=== PATIENT | female | born 1955 | race Caucasian/White ===

== ENCOUNTER 2022-03-05 13:09 | Emergency (ER) | payer MEDICARE, MEDICAID ==
[~2022-03-05] VITALS: Ht 157.5 cm; Wt 59.8 kg
[2022-03-05 13:51] LABS: BASOPHILS # (AUTO) 0.1 X10'3 (0-0.2); BASOPHILS % (AUTO) 0.7 % (0-1); EOSINOPHILS # (AUTO) 0.1 X10'3 (0-0.9); EOSINOPHILS % (AUTO) 1.2 % (0-6); HEMATOCRIT 38.4 % (35.0-45.0); HEMOGLOBIN 12.9 g/dl (12.0-16.0); LYMPHOCYTES # (AUTO) 1.7 X10'3 (1.1-4.8); LYMPHOCYTES % (AUTO) 17.7 % (21-51); MEAN CORPUSCULAR HEMOGLOBIN 27.2 PG (27.0-31.0); MEAN CORPUSCULAR HGB CONC 33.5 g/dL (33.0-36.5); MEAN CORPUSCULAR VOLUME 81.3 FL (78-98); MEAN PLATELET VOLUME 7.4 FL (7.4-10.4); MONOCYTES # (AUTO) 0.8 X10'3 (0-0.9); MONOCYTES % (AUTO) 7.8 % (2-12); NEUTROPHILS % (AUTO) 72.6 % (42-75); PLATELET COUNT 542 X10'3 (140-440); RED BLOOD COUNT 4.72 X10'6 (4.20-5.60); RED CELL DISTRIBUTION WIDTH 12.7 % (11.5-14.5); WHITE BLOOD COUNT 9.7 X10'3 (4.5-11.0)
[2022-03-05 13:59] LABS: ALANINE AMINOTRANSFERASE 34 U/L (12-78); ALBUMIN 3.4 G/DL (3.4-5.0); ALBUMIN/GLOBULIN RATIO 0.8 (1.1-1.5); ALKALINE PHOSPHATASE 82 IU/L (46-116); ANION GAP 11 (8-16); ASPARTATE AMINO TRANSFERASE 30 U/L (10-37); BILIRUBIN,TOTAL 0.3 MG/DL (0.1-1.0); BLOOD UREA NITROGEN 15 MG/DL (7-18); BUN/CREATININE RATIO 18.3 (6.6-38.0); CALCIUM 9.5 MG/DL (8.5-10.1); CHLORIDE 103 MMOL/L (99-107); CREATININE 0.82 MG/DL (0.40-0.90); GLUCOSE 100 MG/DL (70-104); LIPASE 159 U/L (73-393); SODIUM 142 MMOL/L (135-145); TOTAL CARBON DIOXIDE 28.2 MMOL/L (24-32); TOTAL PROTEIN 7.8 G/DL (6.4-8.2); eGFR 69 ML/MIN
[2022-03-05 14:16] LABS: CLARITY,URINE CLOUDY (Clear); COLOR,URINE YELLOW (Yellow); GLUCOSE, URINE NEGATIVE (Neg); KETONES,URINE TRACE mg/dl (Neg); LEUKOCYTE ESTERASE ,URINE MODERATE (Neg); NITRITES, URINE NEGATIVE (Neg); OCCULT BLOOD,URINE NEGATIVE (Neg); PROTEIN,URINE NEGATIVE (Neg); URINE HCG NEGATIVE (NEG); UROBILINOGEN,URINE 0.2 E.U/dL (0.2-1.0)
[2022-03-05 14:18] LABS: UA COLLECTION TYPE CLN CATCH MIDSTREAM
[2022-03-05 14:24] LABS: MUCUS STRANDS MANY /LPF (Neg); SQUAMOUS EPITHELIAL CELL,UR MANY /LPF (FEW); WBC,URINE 50-100 /HPF (0-4)
[2022-03-05 14:25] LABS: BACTERIA,URINE 2+ /HPF (Neg); RBC,URINE 0-2 /HPF (0-2)
[2022-03-05 16:17] VITALS: BP 159/76
== END 2022-03-05 18:32 | disposition home or self-care (01) ==
LOC: ER 13:14
DX: N82.3 Fistula of vagina to large intestine (principal); R10.30 Lower abdominal pain, unspecified; N93.8 Other specified abnormal uterine and vaginal bleeding; J44.9 Chronic obstructive pulmonary disease, unspecified; F17.200 Nicotine dependence, unspecified, uncomplicated; F12.90 Cannabis use, unspecified, uncomplicated; Z87.01 Personal history of pneumonia (recurrent); Z90.710 Acquired absence of both cervix and uterus; Z98.890 Other specified postprocedural states; Z88.2 Allergy status to sulfonamides; Z88.5 Allergy status to narcotic agent
CPT/HCPCS: 36415; 74176; 80053; 81001; 81025; 83690; 85025; 99284

== ENCOUNTER 2022-09-22 08:32 | Day surgery (SDC) | payer MEDICARE, MEDICAID ==
[2022-09-22] VITALS (20 sets, daily range): BP systolic 90–143; BP diastolic 45–76
[~2022-09-22] VITALS: Ht 157.5 cm; Wt 57.5 kg
[2022-09-22] MEDS ORDERED: BIOT1CAP3 PO (09:09)
[2022-09-22] MEDS ORDERED: MULT-1074 PO (09:09)
[2022-09-22] MEDS ORDERED: LOSA50TA64 PO (09:09)
[2022-09-22] MEDS ORDERED: ROSU10TA28 PO (09:09)
[2022-09-22] MEDS ORDERED: TIOT18CA3 INH (09:09)
[2022-09-22] MEDS ORDERED: ASCO100T12 PO (09:09)
[2022-09-22] MEDS ORDERED: OMEG-166 PO (09:09)
[2022-09-22] MEDS ORDERED: ESCI20TA39 PO (09:09)
[2022-09-22] MEDS ORDERED: BUPR-317 PO (09:09)
[2022-09-22] MEDS ORDERED: BUDE10.2 INH (09:09)
[2022-09-22] MEDS ORDERED: TRAZ-251 PO (09:09)
[2022-09-22 09:46] LABS: BASOPHILS # (AUTO) 0.1 X10'3 (0-0.2); BASOPHILS % (AUTO) 1.1 % (0-1); EOSINOPHILS # (AUTO) 0.2 X10'3 (0-0.9); EOSINOPHILS % (AUTO) 1.9 % (0-6); HEMATOCRIT 36.8 % (35.0-45.0); HEMOGLOBIN 12.6 g/dl (12.0-16.0); LYMPHOCYTES # (AUTO) 1.9 X10'3 (1.1-4.8); LYMPHOCYTES % (AUTO) 21.4 % (21-51); MEAN CORPUSCULAR HEMOGLOBIN 29.1 PG (27.0-31.0); MEAN CORPUSCULAR HGB CONC 34.2 g/dL (33.0-36.5); MEAN CORPUSCULAR VOLUME 84.9 FL (78-98); MEAN PLATELET VOLUME 8.3 FL (7.4-10.4); MONOCYTES # (AUTO) 0.6 X10'3 (0-0.9); MONOCYTES % (AUTO) 6.4 % (2-12); NEUTROPHILS # (AUTO) 6.1 X10'3 (1.8-7.7); NEUTROPHILS % (AUTO) 69.2 % (42-75); PLATELET COUNT 367 X10'3 (140-440); RED BLOOD COUNT 4.33 X10'6 (4.20-5.60); RED CELL DISTRIBUTION WIDTH 14.8 % (11.5-14.5); WHITE BLOOD COUNT 8.9 X10'3 (4.5-11.0)
[2022-09-22] MEDS ORDERED: fentaNYL/PF 50MCG/1 ML 2ML syringe ONE (09:56)
[2022-09-22] MEDS ORDERED: midazolam 1 mg/ML 2ml injection ONE (09:56)
[2022-09-22] MEDS ORDERED: LIDOcaine 1% (10mg/ml) 2ml vial ONE ×2 (09:56→10:34)
[2022-09-22] MEDS ORDERED: gelatin sponge, absorbable (Gelfoam 12-7MM) sponge TP ONE (09:57)
[2022-09-22] MEDS ORDERED: normal saline 1000ml 1,000 ML IV PRN (10:00)
== END 2022-09-22 17:15 | disposition home or self-care (01) ==
LOC: SSTAY O 08:32
PROVIDERS: ATTEND Radiology Vascular & Interventional Radiology
DX: R91.1 Solitary pulmonary nodule (principal); C34.91 Malignant neoplasm of unspecified part of right bronchus or lung; J43.9 Emphysema, unspecified; Z90.710 Acquired absence of both cervix and uterus; Z98.890 Other specified postprocedural states; Z79.899 Other long term (current) drug therapy; F12.90 Cannabis use, unspecified, uncomplicated; Z88.2 Allergy status to sulfonamides; Z88.6 Allergy status to analgesic agent
CPT/HCPCS: 32408; 36415; 71045; 85025; 99152; 99153; C1729; C1769; J2250; J3010; J3490; J7030; 77012; 88305; 88341; 88342; A4421; A4615; A6258

== ENCOUNTER 2024-11-15 14:23 | Inpatient (IN) | payer MEDICARE, MEDICAID ==
[~2024-11-15] VITALS: Ht 154.9 cm; Wt 49.0 kg
[~2024-11-15 14:23] MED LIST: ALBU18HF2 PO; ASCO500T28 PO; BIOT1CAP3 PO; BUDE10.2 INH; BUPR-561 PO; CBD; ESCI20TA39 PO; IBUP-2697 PO; LOSA50TA64 PO; MULT-1074 PO; OMEG-166 PO; OREGANO OIL; QUER500C PO; ROSU10TA72 PO; THC; TIOT18CA3 INH; TRAZ-251 PO; ZINC30CA PO; [UNRECOGNIZED DRUG - OTHER]
[2024-11-15 15:48] LABS: BASOPHILS % (AUTO) 0.3 % (0-1); EOSINOPHILS # (AUTO) 0.1 X10'3 (0-0.9); EOSINOPHILS % (AUTO) 0.8 % (0-6); HEMATOCRIT 38.5 % (35.0-45.0); HEMOGLOBIN 12.7 g/dl (12.0-16.0); LYMPHOCYTES # (AUTO) 1.4 X10'3 (1.1-4.8); LYMPHOCYTES % (AUTO) 9.3 % (21-51); MEAN CORPUSCULAR HEMOGLOBIN 26.1 PG (27.0-31.0); MEAN CORPUSCULAR HGB CONC 32.9 g/dL (33.0-36.5); MEAN CORPUSCULAR VOLUME 79.1 FL (78-98); MEAN PLATELET VOLUME 8.3 FL (7.4-10.4); MONOCYTES # (AUTO) 1.2 X10'3 (0-0.9); MONOCYTES % (AUTO) 8.2 % (2-12); NEUTROPHILS # (AUTO) 12.3 X10'3 (1.8-7.7); NEUTROPHILS % (AUTO) 81.4 % (42-75); PLATELET COUNT 459 X10'3 (140-440); RED BLOOD COUNT 4.86 X10'6 (4.20-5.60); RED CELL DISTRIBUTION WIDTH 15.6 % (11.5-14.5); WHITE BLOOD COUNT 15.1 X10'3 (4.5-11.0)
[2024-11-15 15:53] LABS: BILIRUBIN,URINE SMALL (Neg); CLARITY,URINE SLIGHTLY CLOUDY (Clear); COLOR,URINE YELLOW (Yellow); GLUCOSE, URINE NEGATIVE (Neg); KETONES,URINE 15 mg/dl (Neg); LEUKOCYTE ESTERASE ,URINE SMALL (Neg); NITRITES, URINE NEGATIVE (Neg); OCCULT BLOOD,URINE NEGATIVE (Neg); PROTEIN,URINE NEGATIVE (Neg)
[2024-11-15 16:01] LABS: ALANINE AMINOTRANSFERASE 21 U/L (12-78); ALBUMIN 3.4 G/DL (3.4-5.0); ALBUMIN/GLOBULIN RATIO 0.9 (1.1-1.5); ANION GAP 9 (8-16); ASPARTATE AMINO TRANSFERASE 16 U/L (10-37); BILIRUBIN,TOTAL 0.8 MG/DL (0.1-1.0); BLOOD UREA NITROGEN 15 MG/DL (7-18); BUN/CREATININE RATIO 22.7 (10.0-20.0); CALCIUM 9.2 MG/DL (8.5-10.1); CHLORIDE 99 MMOL/L (99-107); CREATININE 0.66 MG/DL (0.40-0.90); GLUCOSE 109 MG/DL (70-104); LIPASE 27 U/L (16-77); POTASSIUM 4.2 MMOL/L (3.5-5.1); SODIUM 136 MMOL/L (135-145); TOTAL CARBON DIOXIDE 27.7 MMOL/L (24-32); TOTAL PROTEIN 7.4 G/DL (6.4-8.2); eCRCL 54 ML/MIN; eGFR 88 ML/MIN
[2024-11-15 16:03] LABS: UA COLLECTION TYPE CLN CATCH MIDSTREAM
[2024-11-15 16:04] LABS: BACTERIA,URINE 1+ /HPF (Neg); CAL OXALATE CRYSTALS 4+ /HPF (NEGATIVE); MUCUS STRANDS FEW /LPF (Neg); SQUAMOUS EPITHELIAL CELL,UR FEW /LPF (FEW); TRANSITIONAL EPI CELLS,URINE FEW /HPF; WBC,URINE 20-30 /HPF (0-4)
[2024-11-15 16:05] LABS: ALKALINE PHOSPHATASE 94 IU/L (46-116)
[2024-11-15] MEDS ORDERED: iohexol 300mg/ml 100ml inj. ONE (17:00)
[2024-11-15] MEDS: ondansetron/PF 4mg/2ml inj IV ONE ×2 (19:06→22:48)
[2024-11-15] MEDS: fentaNYL/PF 50MCG/1 ML 2ML syringe IV ONE (22:45)
[2024-11-15] MEDS: normal saline 1000ML IV soln IVB ONE (22:46)
[2024-11-15] MEDS: CefTRIAXone/D5W-Rocephin 1gm 50 ML IV ONE (22:46)
[2024-11-15] MEDS: LIDOcaine 2% Viscous 15ml cup MM ONE (22:48)
[2024-11-15] MEDS ORDERED: acetaminophen 325mg tablet PO PRN (23:50)
[2024-11-15] MEDS ORDERED: potassium Cl 20 mEq SR tablet PO PRN ×2 (23:50)
[2024-11-15] MEDS ORDERED: magnesium sulf-water 2g/50mL 50 ML IV PRN (23:50)
[2024-11-15] MEDS ORDERED: magnesium hydroxide 30ml (MOM) UD suspension PO PRN (23:50)
[2024-11-15] MEDS ORDERED: magnesium Cl slow-release 64mg tablet PO PRN (23:50)
[2024-11-15] MEDS ORDERED: metoclopramide 5 mg/ml inj IV PRN (23:50)
[2024-11-15] MEDS ORDERED: potassium Cl 40MEQ/1/2NS 520ml 520 ML IV PRN (23:50)
[2024-11-15] MEDS: normal saline 1000ml 1,000 ML IV SCH (23:50)
[2024-11-15] MEDS ORDERED: magnesium sulf-water 4G/100mL 100 ML IV PRN (23:50)
[2024-11-16] VITALS (8 sets, daily range): BP systolic 109–167; BP diastolic 57–99; PULSE 83–96; RESP 15–20; TEMP 97.4–98.3; O2SAT 93–99
[2024-11-16] MEDS: HYDROmorphone inj. 0.5 MG/0.5 ML DISP.SYRIN IV PRN (01:32)
[2024-11-16] MEDS: pantoprazole 40 MG vial IV SCH (01:33)
[2024-11-16 03:30] LABS: BASOPHILS % (AUTO) 0.1 % (0-1); EOSINOPHILS % (AUTO) 0.1 % (0-6); HEMATOCRIT 36.9 % (35.0-45.0); HEMOGLOBIN 12.2 g/dl (12.0-16.0); LYMPHOCYTES # (AUTO) 0.4 X10'3 (1.1-4.8); MEAN CORPUSCULAR HEMOGLOBIN 26.2 PG (27.0-31.0); MEAN CORPUSCULAR HGB CONC 33.1 g/dL (33.0-36.5); MEAN CORPUSCULAR VOLUME 79.2 FL (78-98); MEAN PLATELET VOLUME 8.7 FL (7.4-10.4); MONOCYTES # (AUTO) 0.6 X10'3 (0-0.9); MONOCYTES % (AUTO) 4.2 % (2-12); NEUTROPHILS # (AUTO) 13.3 X10'3 (1.8-7.7); NEUTROPHILS % (AUTO) 92.6 % (42-75); PLATELET COUNT 406 X10'3 (140-440); RED BLOOD COUNT 4.66 X10'6 (4.20-5.60); RED CELL DISTRIBUTION WIDTH 16.2 % (11.5-14.5); WHITE BLOOD COUNT 14.4 X10'3 (4.5-11.0)
[2024-11-16 03:46] LABS: ALANINE AMINOTRANSFERASE 20 U/L (12-78); ALBUMIN/GLOBULIN RATIO 0.8 (1.1-1.5); ANION GAP 9 (8-16); ASPARTATE AMINO TRANSFERASE 18 U/L (10-37); BILIRUBIN,TOTAL 1.7 MG/DL (0.1-1.0); BLOOD UREA NITROGEN 21 MG/DL (7-18); BUN/CREATININE RATIO 31.8 (10.0-20.0); CALCIUM 8.4 MG/DL (8.5-10.1); CHLORIDE 104 MMOL/L (99-107); CREATININE 0.66 MG/DL (0.40-0.90); GLUCOSE 122 MG/DL (70-104); MAGNESIUM 1.9 MG/DL (1.5-2.4); SODIUM 139 MMOL/L (135-145); TOTAL CARBON DIOXIDE 26.4 MMOL/L (24-32); TOTAL PROTEIN 6.7 G/DL (6.4-8.2); eCRCL 54 ML/MIN; eGFR 88 ML/MIN
[2024-11-16] MEDS ORDERED: FLUT1BLS7 INH (03:53)
[2024-11-16] MEDS ORDERED: VIT1CAPS4 PO (03:55)
[2024-11-16] MEDS ORDERED: LOSA25TA41 PO (03:58)
[2024-11-16 04:00] LABS: ALKALINE PHOSPHATASE 83 IU/L (46-116)
[2024-11-16] MEDS ORDERED: TIOT4MIS2 INH (04:02)
[2024-11-16] MEDS ORDERED: LACT1CAP65 PO (04:04)
[2024-11-16] MEDS ORDERED: albuterol 2.5 MG/3 ML nebule NEB PRN (04:30)
[2024-11-16] MEDS: methylPREDNISolone sod succ/PF 40mg inj. IV SCH (05:25)
[2024-11-16] MEDS: docusate sod 100mg capsule PO SCH (08:00)
[2024-11-16] MEDS: K and/or MAG REPLACEMENT MC SCH (08:00)
[2024-11-16] MEDS: metroNIDAZOLE-Flagyl 500mg/NS 100 ML IV SCH (08:15)
[2024-11-16] MEDS: hydrALAZINE 20mg/ml inj. IV PRN (20:32)
[2024-11-16] MEDS: CefTRIAXone/D5W-Rocephin 1gm 50 ML IV SCH (22:05)
[2024-11-17] MEDS: diatr meglu/diatrizoate 30ml oral sol.-(3 dose) bottle PO SCH (01:04)
[2024-11-17 06:00] VITALS: BP 133/74; PULSE 95; RESP 17; TEMP 98.5; O2SAT 96
[2024-11-17 06:31] LABS: BASOPHILS % (AUTO) 0.1 % (0-1); EOSINOPHILS % (AUTO) 0 % (0-6); HEMATOCRIT 33.5 % (35.0-45.0); HEMOGLOBIN 11.2 g/dl (12.0-16.0); LYMPHOCYTES # (AUTO) 0.5 X10'3 (1.1-4.8); LYMPHOCYTES % (AUTO) 10.5 % (21-51); MEAN CORPUSCULAR HEMOGLOBIN 26.5 PG (27.0-31.0); MEAN CORPUSCULAR HGB CONC 33.6 g/dL (33.0-36.5); MEAN PLATELET VOLUME 8.6 FL (7.4-10.4); MONOCYTES # (AUTO) 0.3 X10'3 (0-0.9); MONOCYTES % (AUTO) 4.9 % (2-12); NEUTROPHILS # (AUTO) 4.4 X10'3 (1.8-7.7); NEUTROPHILS % (AUTO) 84.5 % (42-75); PLATELET COUNT 381 X10'3 (140-440); RED BLOOD COUNT 4.24 X10'6 (4.20-5.60); RED CELL DISTRIBUTION WIDTH 15.6 % (11.5-14.5); WHITE BLOOD COUNT 5.2 X10'3 (4.5-11.0)
[2024-11-17 06:53] LABS: ALANINE AMINOTRANSFERASE 19 U/L (12-78); ALBUMIN 2.8 G/DL (3.4-5.0); ALBUMIN/GLOBULIN RATIO 0.8 (1.1-1.5); ALKALINE PHOSPHATASE 67 IU/L (46-116); ANION GAP 8 (8-16); ASPARTATE AMINO TRANSFERASE 21 U/L (10-37); BILIRUBIN,TOTAL 0.4 MG/DL (0.1-1.0); BLOOD UREA NITROGEN 23 MG/DL (7-18); BUN/CREATININE RATIO 41.8 (10.0-20.0); CALCIUM 8.2 MG/DL (8.5-10.1); CHLORIDE 107 MMOL/L (99-107); CREATININE 0.55 MG/DL (0.40-0.90); GLUCOSE 121 MG/DL (70-104); MAGNESIUM 1.9 MG/DL (1.5-2.4); SODIUM 141 MMOL/L (135-145); TOTAL CARBON DIOXIDE 25.7 MMOL/L (24-32); TOTAL PROTEIN 6.4 G/DL (6.4-8.2); eCRCL 68 ML/MIN; eGFR > 90 ML/MIN
[2024-11-17 08:37] VITALS: PULSE 87; RESP 18; O2SAT 98
[2024-11-17 10:00] VITALS: BP 143/76; PULSE 103; RESP 18; TEMP 98.8; O2SAT 94
[2024-11-17] MEDS ORDERED: diatr meglu/diatrizoate 30ml oral sol.-(3 dose) bottle ONE (14:22)
[2024-11-17 18:30] VITALS: BP 164/84; PULSE 91; RESP 18; TEMP 97.6; O2SAT 95
[2024-11-17] MEDS ORDERED: non-formulary drug (Albuterol Sulfate (Ventolin Hfa) 2 PUFFS) PO PRN (18:50)
[2024-11-17] MEDS: SALMETEROL IH SCH (20:00)
[2024-11-17] MEDS: FLUTICASONE IH SCH (20:00)
[2024-11-17] MEDS: traZODone 50mg tablet PO SCH (21:30)
[2024-11-17] MEDS: losartan 25mg tablet PO SCH (21:31)
[2024-11-17] MEDS: atorvastatin 20mg tablet PO SCH (21:31)
[2024-11-17 22:00] VITALS: BP 140/77; PULSE 87; RESP 18; TEMP 98.2; O2SAT 95
[2024-11-17 23:39] VITALS: BP 142/83; PULSE 87; RESP 24; TEMP 98.3; O2SAT 94
[2024-11-18] VITALS (11 sets, daily range): BP systolic 129–168; BP diastolic 65–93; PULSE 86–98; RESP 14–24; TEMP 97.6–99; O2SAT 94–99
[2024-11-18] MEDS ORDERED: non-formulary drug (Lactobacillus Acidophilus (Probiotic) 1 CAP) PO SCH
[2024-11-18 05:41] LABS: BASOPHILS % (AUTO) 0.1 % (0-1); EOSINOPHILS % (AUTO) 0 % (0-6); HEMATOCRIT 41.9 % (35.0-45.0); HEMOGLOBIN 13.6 g/dl (12.0-16.0); LYMPHOCYTES # (AUTO) 0.7 X10'3 (1.1-4.8); LYMPHOCYTES % (AUTO) 9.1 % (21-51); MEAN CORPUSCULAR HEMOGLOBIN 26.3 PG (27.0-31.0); MEAN CORPUSCULAR HGB CONC 32.4 g/dL (33.0-36.5); MEAN PLATELET VOLUME 8.3 FL (7.4-10.4); MONOCYTES # (AUTO) 0.1 X10'3 (0-0.9); MONOCYTES % (AUTO) 1.9 % (2-12); NEUTROPHILS # (AUTO) 6.7 X10'3 (1.8-7.7); NEUTROPHILS % (AUTO) 88.9 % (42-75); PLATELET COUNT 438 X10'3 (140-440); RED BLOOD COUNT 5.17 X10'6 (4.20-5.60); RED CELL DISTRIBUTION WIDTH 16.2 % (11.5-14.5); WHITE BLOOD COUNT 7.5 X10'3 (4.5-11.0)
[2024-11-18 06:02] LABS: ALANINE AMINOTRANSFERASE 21 U/L (12-78); ALBUMIN 3.4 G/DL (3.4-5.0); ALBUMIN/GLOBULIN RATIO 0.9 (1.1-1.5); ALKALINE PHOSPHATASE 74 IU/L (46-116); ANION GAP 11 (8-16); ASPARTATE AMINO TRANSFERASE 21 U/L (10-37); BILIRUBIN,TOTAL 0.5 MG/DL (0.1-1.0); BLOOD UREA NITROGEN 18 MG/DL (7-18); BUN/CREATININE RATIO 31.6 (10.0-20.0); CALCIUM 8.8 MG/DL (8.5-10.1); CHLORIDE 105 MMOL/L (99-107); CREATININE 0.57 MG/DL (0.40-0.90); GLUCOSE 121 MG/DL (70-104); MAGNESIUM 1.9 MG/DL (1.5-2.4); POTASSIUM 3.5 MMOL/L (3.5-5.1); SODIUM 142 MMOL/L (135-145); TOTAL CARBON DIOXIDE 26.3 MMOL/L (24-32); TOTAL PROTEIN 7.3 G/DL (6.4-8.2); eCRCL 65 ML/MIN; eGFR > 90 ML/MIN
[2024-11-18] MEDS: Tiotropium Bromide (Spiriva Respimat) IH SCH (08:00)
[2024-11-18] MEDS ORDERED: ZINC GLUCONATE ZINC PICOLINATE 30 MG PO SCH (08:00)
[2024-11-18] MEDS: pantoprazole 40mg Tablet.DR PO SCH (08:16)
[2024-11-18] MEDS: BUPROPION HCL 150MG XL 24 HR 150 MG TAB PO SCH (08:16)
[2024-11-18] MEDS: ESCITALOPRAM 10 mg tablet 10 MG TABLET PO SCH (08:17)
[2024-11-18] MEDS: PERFLUTREN PROTEIN-A MICROSPHR (Optison) 0.22 MG/ML 3ML VIAL IV ONE (12:00)
[2024-11-18] MEDS: diatr meglu/diatrizoate 30ml oral sol.-(3 dose) bottle PO SCH (21:19)
[2024-11-19 06:13] LABS: BASOPHILS % (AUTO) 0.2 % (0-1); EOSINOPHILS % (AUTO) 0 % (0-6); HEMATOCRIT 34.2 % (35.0-45.0); HEMOGLOBIN 11.4 g/dl (12.0-16.0); LYMPHOCYTES # (AUTO) 0.6 X10'3 (1.1-4.8); MEAN CORPUSCULAR HEMOGLOBIN 26.5 PG (27.0-31.0); MEAN CORPUSCULAR HGB CONC 33.4 g/dL (33.0-36.5); MEAN CORPUSCULAR VOLUME 79.2 FL (78-98); MEAN PLATELET VOLUME 8.4 FL (7.4-10.4); MONOCYTES # (AUTO) 0.2 X10'3 (0-0.9); MONOCYTES % (AUTO) 2.5 % (2-12); NEUTROPHILS # (AUTO) 6.1 X10'3 (1.8-7.7); NEUTROPHILS % (AUTO) 88.3 % (42-75); PLATELET COUNT 351 X10'3 (140-440); RED BLOOD COUNT 4.31 X10'6 (4.20-5.60); RED CELL DISTRIBUTION WIDTH 16.3 % (11.5-14.5); WHITE BLOOD COUNT 6.9 X10'3 (4.5-11.0)
[2024-11-19 06:38] LABS: ALANINE AMINOTRANSFERASE 21 U/L (12-78); ALBUMIN 2.6 G/DL (3.4-5.0); ALBUMIN/GLOBULIN RATIO 0.9 (1.1-1.5); ALKALINE PHOSPHATASE 57 IU/L (46-116); ANION GAP 10 (8-16); ASPARTATE AMINO TRANSFERASE 12 U/L (10-37); BILIRUBIN,TOTAL 0.4 MG/DL (0.1-1.0); BLOOD UREA NITROGEN 17 MG/DL (7-18); BUN/CREATININE RATIO 41.5 (10.0-20.0); CALCIUM 8.3 MG/DL (8.5-10.1); CHLORIDE 107 MMOL/L (99-107); CREATININE 0.41 MG/DL (0.40-0.90); GLUCOSE 116 MG/DL (70-104); MAGNESIUM 1.8 MG/DL (1.5-2.4); POTASSIUM 3.9 MMOL/L (3.5-5.1); SODIUM 144 MMOL/L (135-145); TOTAL CARBON DIOXIDE 27.4 MMOL/L (24-32); TOTAL PROTEIN 5.6 G/DL (6.4-8.2); eCRCL 91 ML/MIN; eGFR > 90 ML/MIN
[2024-11-19 07:07] VITALS: BP 137/77; PULSE 84; RESP 16; TEMP 97.6; O2SAT 98
[2024-11-19] MEDS ORDERED: iohexol 300mg/ml 100ml inj. ONE (07:15)
[2024-11-19 08:46] VITALS: PULSE 91; RESP 16; O2SAT 98
[2024-11-19 10:00] VITALS: BP 149/81; PULSE 83; RESP 20; TEMP 98.7; O2SAT 93
[2024-11-19 18:40] VITALS: BP 156/84; PULSE 86; RESP 17; TEMP 99; O2SAT 95
[2024-11-19 20:03] VITALS: PULSE 87; RESP 16; O2SAT 98
[2024-11-19 20:10] VITALS: PULSE 79; RESP 17
[2024-11-20] VITALS (24 sets, daily range): BP systolic 90–158; BP diastolic 42–88; PULSE 72–85; RESP 12–25; TEMP 97.6–98.9; O2SAT 90–99
[2024-11-20 06:04] LABS: BASOPHILS % (AUTO) 0.2 % (0-1); EOSINOPHILS % (AUTO) 0 % (0-6); HEMATOCRIT 39.2 % (35.0-45.0); HEMOGLOBIN 13.4 g/dl (12.0-16.0); LYMPHOCYTES # (AUTO) 0.7 X10'3 (1.1-4.8); LYMPHOCYTES % (AUTO) 7.4 % (21-51); MEAN CORPUSCULAR HEMOGLOBIN 26.8 PG (27.0-31.0); MEAN CORPUSCULAR HGB CONC 34.1 g/dL (33.0-36.5); MEAN CORPUSCULAR VOLUME 78.4 FL (78-98); MEAN PLATELET VOLUME 8.3 FL (7.4-10.4); MONOCYTES # (AUTO) 0.2 X10'3 (0-0.9); MONOCYTES % (AUTO) 2.6 % (2-12); NEUTROPHILS # (AUTO) 8.7 X10'3 (1.8-7.7); NEUTROPHILS % (AUTO) 89.8 % (42-75); PLATELET COUNT 391 X10'3 (140-440); RED CELL DISTRIBUTION WIDTH 15.9 % (11.5-14.5); WHITE BLOOD COUNT 9.7 X10'3 (4.5-11.0)
[2024-11-20 06:24] LABS: ALANINE AMINOTRANSFERASE 25 U/L (12-78); ALBUMIN 3.3 G/DL (3.4-5.0); ALBUMIN/GLOBULIN RATIO 0.9 (1.1-1.5); ALKALINE PHOSPHATASE 64 IU/L (46-116); ANION GAP 9 (8-16); ASPARTATE AMINO TRANSFERASE 18 U/L (10-37); BILIRUBIN,TOTAL 0.6 MG/DL (0.1-1.0); BLOOD UREA NITROGEN 12 MG/DL (7-18); BUN/CREATININE RATIO 21.8 (10.0-20.0); CALCIUM 8.7 MG/DL (8.5-10.1); CHLORIDE 104 MMOL/L (99-107); CREATININE 0.55 MG/DL (0.40-0.90); GLUCOSE 116 MG/DL (70-104); POTASSIUM 3.4 MMOL/L (3.5-5.1); SODIUM 142 MMOL/L (135-145); TOTAL CARBON DIOXIDE 29.3 MMOL/L (24-32); TOTAL PROTEIN 6.9 G/DL (6.4-8.2); eCRCL 68 ML/MIN; eGFR > 90 ML/MIN
[2024-11-20] MEDS ORDERED: magnesium sulf-water 4G/100mL 100 ML IV PRN (09:00)
[2024-11-20] MEDS ORDERED: potassium Cl 20 mEq SR tablet PO PRN ×2 (09:00)
[2024-11-20] MEDS ORDERED: magnesium sulf-water 2g/50mL 50 ML IV PRN (09:00)
[2024-11-20] MEDS: potassium Cl 40MEQ/1/2NS 520ml 520 ML IV PRN (09:49)
[2024-11-20] MEDS ORDERED: BUPIVACAINE liposomal/PF 13.3 MG/ML 10mL vial IM ONE (15:19)
[2024-11-20] MEDS ORDERED: BUPIVAcaine/PF 2.5mg/ml (0.25%) 10ml vial ONE (15:20)
[2024-11-20] MEDS ORDERED: sevoflurane 250ml liquid IH ONE (15:21)
[2024-11-20] MEDS ORDERED: midazolam 1 mg/ML 2ml injection ONE (15:24)
[2024-11-20] MEDS ORDERED: fentaNYL /PF 50mcg/ml 5ml ampule ONE (15:24)
[2024-11-20] MEDS ORDERED: LIDOcaine 2% (20mg/ml) 5ml vial ONE (16:07)
[2024-11-20] MEDS ORDERED: propofol inj 20 ML IV ONE (16:07)
[2024-11-20] MEDS ORDERED: ceFOXitin 1000 MG inj ONE ×2 (16:07)
[2024-11-20] MEDS ORDERED: rocuronium 10mg/ml inj IV ONE ×2 (16:08→17:29)
[2024-11-20] MEDS ORDERED: labetalol 20mg/4ml (5mg/ml) syringe IV PRN (16:20)
[2024-11-20] MEDS ORDERED: meperidine/PF 25mg/ml syringe IV PRN (16:20)
[2024-11-20] MEDS ORDERED: hydrALAZINE 20mg/ml inj. IV PRN (16:20)
[2024-11-20] MEDS ORDERED: morphine 2 MG/ML inj. syringe IV PRN (16:20)
[2024-11-20] MEDS ORDERED: HYDROmorphone/PF 0.2 MG/ML SYRINGE IV PRN (16:20)
[2024-11-20] MEDS ORDERED: morphine 4 MG/ML inj SYRINge IV PRN (16:20)
[2024-11-20] MEDS ORDERED: ondansetron/PF 4mg/2ml inj IV PRN (16:20)
[2024-11-20] MEDS ORDERED: proCHLORperazine 10 MG/2 ml inj IV PRN (16:20)
[2024-11-20] MEDS ORDERED: ondansetron/PF 4mg/2ml inj ONE (16:47)
[2024-11-20] MEDS ORDERED: sugammadex 200mg/2ml injection IV ONE (16:51)
[2024-11-20] MEDS ORDERED: albumin (Human) 5% 250ml 250 ML IV ONE (17:06)
[2024-11-20] MEDS: acetaminophen 1,000mg/100ml IV 100 ML IV ONE (19:37)
[2024-11-20] MEDS: HYDROmorphone/PF 0.2 MG/ML SYRINGE IV PRN (19:37)
[2024-11-20 19:51] LABS: ABG BASE EXCESS -5.7 mmol/L (-2.0-3.0); ABG HCO3 19.8 mmol/L (21.0-28.0); ABG OXYGEN SATURATION 94.9 % (94.0-98.0); ABG PCO2 (T) 38.6 mmHg (32.0-45.0); ABG PH (T) 7.327 (7.350-7.450); FCOHb 1.2 % (0.5-1.5); FMetHb 0.3 % (0.0-1.5); FO2Hb 93.5 % (94.0-98.0); MODE simple mask 9
[2024-11-20] MEDS: ringers solution, lacted 1,000 ML IV SCH (20:00)
[2024-11-20] MEDS: K and/or MAG REPLACEMENT MC SCH (20:00)
[2024-11-20] MEDS: fat emulsion 20% inj. 100 ML IV SCH (21:00)
[2024-11-20] MEDS ORDERED: Dextrose 10%-water IV solution 1,000 ML IV PRN ×2 (21:00)
[2024-11-21] VITALS (11 sets, daily range): BP systolic 84–124; BP diastolic 42–72; PULSE 71–86; RESP 12–17; TEMP 97.4–98.4; O2SAT 93–97
[2024-11-21] MEDS: HYDROmorphone inj. 0.5 MG/0.5 ML DISP.SYRIN IV PRN ×2 (00:27→19:40)
[2024-11-21] MEDS: HYDROmorphone/PF 0.2 MG/ML SYRINGE IV PRN (02:58)
[2024-11-21 06:11] LABS: BASOPHILS % (AUTO) 0.1 % (0-1); EOSINOPHILS % (AUTO) 0 % (0-6); HEMATOCRIT 34.1 % (35.0-45.0); HEMOGLOBIN 11.2 g/dl (12.0-16.0); LYMPHOCYTES # (AUTO) 0.4 X10'3 (1.1-4.8); LYMPHOCYTES % (AUTO) 1.6 % (21-51); MEAN CORPUSCULAR HGB CONC 32.8 g/dL (33.0-36.5); MEAN CORPUSCULAR VOLUME 79.1 FL (78-98); MEAN PLATELET VOLUME 8.4 FL (7.4-10.4); MONOCYTES # (AUTO) 0.8 X10'3 (0-0.9); NEUTROPHILS # (AUTO) 23.9 X10'3 (1.8-7.7); NEUTROPHILS % (AUTO) 95.3 % (42-75); PLATELET COUNT 273 X10'3 (140-440); RED BLOOD COUNT 4.31 X10'6 (4.20-5.60); RED CELL DISTRIBUTION WIDTH 15.9 % (11.5-14.5)
[2024-11-21 06:18] LABS: WHITE BLOOD COUNT 25.1 X10'3 (4.5-11.0)
[2024-11-21 06:51] LABS: TOTAL CELLS COUNTED 100
[2024-11-21 06:52] LABS: MICROCYTOSIS 1+; PLATELET ESTIMATE NORMAL
[2024-11-21 07:53] LABS: ALKALINE PHOSPHATASE 46 IU/L (46-116); ANION GAP 9 (8-16); ASPARTATE AMINO TRANSFERASE 29 U/L (10-37); BILIRUBIN,TOTAL 0.7 MG/DL (0.1-1.0); CHLORIDE 103 MMOL/L (99-107); PHOSPHORUS 3.9 MG/DL (2.3-4.5); SODIUM 137 MMOL/L (135-145); TOTAL CARBON DIOXIDE 24.8 MMOL/L (24-32); TOTAL PROTEIN 4.9 G/DL (6.4-8.2); TRIGLYCERIDES 89 MG/DL (20-135)
[2024-11-21 08:10] LABS: ALANINE AMINOTRANSFERASE 22 U/L (12-78); ALBUMIN 2.3 G/DL (3.4-5.0); ALBUMIN/GLOBULIN RATIO 0.9 (1.1-1.5); BLOOD UREA NITROGEN 16 MG/DL (7-18); BUN/CREATININE RATIO 31.4 (10.0-20.0); CALCIUM 7.3 MG/DL (8.5-10.1); CREATININE 0.51 MG/DL (0.40-0.90); GLUCOSE 134 MG/DL (70-104); MAGNESIUM 1.4 MG/DL (1.5-2.4); PREALBUMIN 14.4 MG/DL (19-36); eCRCL 73 ML/MIN; eGFR > 90 ML/MIN
[2024-11-21] MEDS: MVI, adult No.4 with vit. K 10 ML in dextrose 5% water 500ml 500 ML IV SCH (11:43)
[2024-11-21] MEDS ORDERED: dextrose 50%-water 50ml dispensing syringe IV PRN ×2 (14:45)
[2024-11-21] MEDS ORDERED: DEXTROSE 15 GM of carb/4 tabs (each vial/BOTTLE has 4 tablets) PO PRN ×2 (14:45)
[2024-11-21] MEDS ORDERED: glucagon, human recombinant 1mg kit SUBCUT PRN (14:45)
[2024-11-21] MEDS ORDERED: naloxone 0.4 mg/ml inj IV PRN (15:05)
[2024-11-21] MEDS ORDERED: PCA WASTE DOCUMENTATION 1 MG ML MC PRN (15:05)
[2024-11-21] MEDS: magnesium Cl slow-release 64mg tablet PO PRN (15:17)
[2024-11-21] MEDS ORDERED: HYDROmorph/NS 0.2 mg/ml PCA 100 ML IV SCH (17:00)
[2024-11-21] MEDS: INSULIN LISPRO 100 UNIT/ML INSULN.PEN MULTI-DOSE SQ SCH (21:47)
[2024-11-21] MEDS: insulin glargine (Lantus) VIAL- multi-dose SQ SCH (21:49)
[2024-11-22 06:00] VITALS: BP 103/53; PULSE 82; RESP 13; TEMP 97.3; O2SAT 94
[2024-11-22 07:08] LABS: ALANINE AMINOTRANSFERASE 40 U/L (12-78); ALBUMIN 2.1 G/DL (3.4-5.0); ALBUMIN/GLOBULIN RATIO 0.8 (1.1-1.5); ALKALINE PHOSPHATASE 49 IU/L (46-116); ANION GAP 6 (8-16); ASPARTATE AMINO TRANSFERASE 89 U/L (10-37); BILIRUBIN,TOTAL 0.3 MG/DL (0.1-1.0); BLOOD UREA NITROGEN 16 MG/DL (7-18); CALCIUM 7.8 MG/DL (8.5-10.1); CHLORIDE 104 MMOL/L (99-107); CREATININE 0.47 MG/DL (0.40-0.90); GLUCOSE 125 MG/DL (70-104); PHOSPHORUS 2.3 MG/DL (2.3-4.5); POTASSIUM 4.3 MMOL/L (3.5-5.1); SODIUM 137 MMOL/L (135-145); TOTAL CARBON DIOXIDE 26.7 MMOL/L (24-32); TOTAL PROTEIN 4.7 G/DL (6.4-8.2); eCRCL 79 ML/MIN; eGFR > 90 ML/MIN
[2024-11-22 07:35] LABS: MAGNESIUM 1.7 MG/DL (1.5-2.4)
[2024-11-22 08:00] VITALS: RESP 13; O2SAT 94
[2024-11-22] MEDS: methylPREDNISolone sod succ/PF 40mg inj. IV SCH (08:53)
[2024-11-22 08:58] LABS: BASOPHILS % (AUTO) 0.1 % (0-1); EOSINOPHILS % (AUTO) 0 % (0-6); HEMATOCRIT 29.9 % (35.0-45.0); HEMOGLOBIN 9.9 g/dl (12.0-16.0); LYMPHOCYTES # (AUTO) 1.1 X10'3 (1.1-4.8); MEAN CORPUSCULAR HEMOGLOBIN 26.9 PG (27.0-31.0); MEAN CORPUSCULAR HGB CONC 33.3 g/dL (33.0-36.5); MEAN CORPUSCULAR VOLUME 80.6 FL (78-98); MEAN PLATELET VOLUME 9.2 FL (7.4-10.4); MONOCYTES # (AUTO) 0.8 X10'3 (0-0.9); MONOCYTES % (AUTO) 4.6 % (2-12); NEUTROPHILS # (AUTO) 15.9 X10'3 (1.8-7.7); NEUTROPHILS % (AUTO) 89.3 % (42-75); PLATELET COUNT 225 X10'3 (140-440); RED CELL DISTRIBUTION WIDTH 15.7 % (11.5-14.5); WHITE BLOOD COUNT 17.8 X10'3 (4.5-11.0)
[2024-11-22 19:00] VITALS: BP 108/59; PULSE 80; RESP 16; TEMP 97.6; O2SAT 95
[2024-11-22 20:00] VITALS: RESP 16; O2SAT 95
[2024-11-22] MEDS: enoxaparin 40mg/0.4ml syringe SUBCUT SCH (21:13)
[2024-11-22] MEDS ORDERED: hydrALAZINE 20mg/ml inj. IV PRN (21:30)
[2024-11-23] VITALS (8 sets, daily range): BP systolic 121–153; BP diastolic 66–90; PULSE 80–93; RESP 16–20; TEMP 98.1–99; O2SAT 93–100
[2024-11-23 06:00] LABS: BASOPHILS % (AUTO) 0.2 % (0-1); EOSINOPHILS % (AUTO) 0 % (0-6); HEMATOCRIT 24.4 % (35.0-45.0); HEMOGLOBIN 8.2 g/dl (12.0-16.0); LYMPHOCYTES # (AUTO) 0.3 X10'3 (1.1-4.8); LYMPHOCYTES % (AUTO) 1.6 % (21-51); MEAN CORPUSCULAR HEMOGLOBIN 26.6 PG (27.0-31.0); MEAN CORPUSCULAR HGB CONC 33.4 g/dL (33.0-36.5); MEAN CORPUSCULAR VOLUME 79.5 FL (78-98); MEAN PLATELET VOLUME 8.4 FL (7.4-10.4); MONOCYTES # (AUTO) 0.4 X10'3 (0-0.9); MONOCYTES % (AUTO) 2.3 % (2-12); NEUTROPHILS # (AUTO) 16.1 X10'3 (1.8-7.7); NEUTROPHILS % (AUTO) 95.9 % (42-75); PLATELET COUNT 193 X10'3 (140-440); RED BLOOD COUNT 3.07 X10'6 (4.20-5.60); RED CELL DISTRIBUTION WIDTH 15.6 % (11.5-14.5); WHITE BLOOD COUNT 16.7 X10'3 (4.5-11.0)
[2024-11-23 06:32] LABS: ALANINE AMINOTRANSFERASE 44 U/L (12-78); ALBUMIN 1.8 G/DL (3.4-5.0); ALBUMIN/GLOBULIN RATIO 0.7 (1.1-1.5); ALKALINE PHOSPHATASE 40 IU/L (46-116); ANION GAP 6 (8-16); ASPARTATE AMINO TRANSFERASE 43 U/L (10-37); BILIRUBIN,TOTAL 0.4 MG/DL (0.1-1.0); BLOOD UREA NITROGEN 11 MG/DL (7-18); BUN/CREATININE RATIO 25.6 (10.0-20.0); CALCIUM 7.5 MG/DL (8.5-10.1); CHLORIDE 105 MMOL/L (99-107); CREATININE 0.43 MG/DL (0.40-0.90); GLUCOSE 165 MG/DL (70-104); MAGNESIUM 1.5 MG/DL (1.5-2.4); PHOSPHORUS 2.4 MG/DL (2.3-4.5); POTASSIUM 3.6 MMOL/L (3.5-5.1); SODIUM 138 MMOL/L (135-145); TOTAL PROTEIN 4.5 G/DL (6.4-8.2); TRIGLYCERIDES 43 MG/DL (20-135); eCRCL 86 ML/MIN; eGFR > 90 ML/MIN
[2024-11-23] MEDS: ZINC/COPPER/MANGANESE/SELENIUM 1 ML, chromic chloride inj. 10 MCG in AA 5%/CALCIUM/LYTE... IV SCH (17:27)
[2024-11-23] MEDS: mag hydrox/Alum hydrox/simeth 30ml oral suspension PO PRN (20:39)
[2024-11-24] VITALS (8 sets, daily range): BP systolic 120–147; BP diastolic 80–93; PULSE 86–103; RESP 15–20; TEMP 98.3–98.4; O2SAT 94–99
[2024-11-24 06:54] LABS: BASOPHILS % (AUTO) 0.2 % (0-1); EOSINOPHILS % (AUTO) 0 % (0-6); HEMATOCRIT 27.2 % (35.0-45.0); HEMOGLOBIN 9.3 g/dl (12.0-16.0); LYMPHOCYTES # (AUTO) 0.5 X10'3 (1.1-4.8); LYMPHOCYTES % (AUTO) 2.6 % (21-51); MEAN CORPUSCULAR HEMOGLOBIN 27.5 PG (27.0-31.0); MEAN CORPUSCULAR HGB CONC 34.3 g/dL (33.0-36.5); MEAN CORPUSCULAR VOLUME 80.2 FL (78-98); MEAN PLATELET VOLUME 9.2 FL (7.4-10.4); MONOCYTES # (AUTO) 0.6 X10'3 (0-0.9); MONOCYTES % (AUTO) 3.3 % (2-12); NEUTROPHILS # (AUTO) 17.1 X10'3 (1.8-7.7); NEUTROPHILS % (AUTO) 93.9 % (42-75); PLATELET COUNT 228 X10'3 (140-440); RED CELL DISTRIBUTION WIDTH 15.9 % (11.5-14.5); WHITE BLOOD COUNT 18.2 X10'3 (4.5-11.0)
[2024-11-24 07:01] LABS: ALANINE AMINOTRANSFERASE 46 U/L (12-78); ALBUMIN 2.1 G/DL (3.4-5.0); ALBUMIN/GLOBULIN RATIO 0.7 (1.1-1.5); ALKALINE PHOSPHATASE 46 IU/L (46-116); ANION GAP 4 (8-16); BILIRUBIN,TOTAL 0.4 MG/DL (0.1-1.0); BLOOD UREA NITROGEN 9 MG/DL (7-18); BUN/CREATININE RATIO 20.5 (10.0-20.0); CALCIUM 7.9 MG/DL (8.5-10.1); CHLORIDE 103 MMOL/L (99-107); CREATININE 0.44 MG/DL (0.40-0.90); MAGNESIUM 1.8 MG/DL (1.5-2.4); PHOSPHORUS 3.1 MG/DL (2.3-4.5); POTASSIUM 4.2 MMOL/L (3.5-5.1); SODIUM 136 MMOL/L (135-145); TOTAL CARBON DIOXIDE 29.4 MMOL/L (24-32); TOTAL PROTEIN 5.1 G/DL (6.4-8.2); eCRCL 84 ML/MIN; eGFR > 90 ML/MIN
[2024-11-24 07:17] LABS: ASPARTATE AMINO TRANSFERASE 31 U/L (10-37)
[2024-11-24 07:28] LABS: GLUCOSE 528 MG/DL (70-104)
[2024-11-24] MEDS: insulin regular, human U-100 10ml vial - multi-dose SQ SCH (08:00)
[2024-11-24 08:39] LABS: ALBUMIN 2.1 G/DL (3.4-5.0); ANION GAP 4 (8-16); BLOOD UREA NITROGEN 9 MG/DL (7-18); CHLORIDE 103 MMOL/L (99-107); CREATININE 0.45 MG/DL (0.40-0.90); GLUCOSE 116 MG/DL (70-104); POTASSIUM 3.3 MMOL/L (3.5-5.1); SODIUM 138 MMOL/L (135-145); TOTAL CARBON DIOXIDE 31.3 MMOL/L (24-32); eCRCL 83 ML/MIN; eGFR > 90 ML/MIN
[2024-11-24] MEDS: ipratropium/albuterol 3ml nebule NEB PRN (09:20)
[2024-11-24] MEDS ORDERED: potassium Cl 40MEQ/1/2NS 520ml 520 ML IV PRN (11:10)
[2024-11-24] MEDS ORDERED: magnesium sulf-water 4G/100mL 100 ML IV PRN (11:10)
[2024-11-24] MEDS ORDERED: potassium Cl 20 mEq SR tablet PO PRN (11:10)
[2024-11-24] MEDS ORDERED: magnesium sulf-water 2g/50mL 50 ML IV PRN (11:10)
[2024-11-24] MEDS: potassium Cl 20 mEq SR tablet PO PRN (11:51)
[2024-11-24] MEDS: K and/or MAG REPLACEMENT MC SCH (20:14)
[2024-11-24] MEDS: insulin glargine (Lantus) pen - multi-dose SQ SCH (20:24)
[2024-11-24] MEDS: temazepam 15mg capsule PO PRN (22:02)
[2024-11-25] VITALS (7 sets, daily range): BP systolic 118–130; BP diastolic 66–83; PULSE 70–97; RESP 16–20; TEMP 97.6–99; O2SAT 94–99
[2024-11-25 06:08] LABS: BASOPHILS % (AUTO) 0.2 % (0-1); EOSINOPHILS # (AUTO) 0.2 X10'3 (0-0.9); EOSINOPHILS % (AUTO) 0.8 % (0-6); HEMATOCRIT 29.7 % (35.0-45.0); HEMOGLOBIN 9.8 g/dl (12.0-16.0); LYMPHOCYTES % (AUTO) 5.4 % (21-51); MEAN CORPUSCULAR HEMOGLOBIN 26.2 PG (27.0-31.0); MEAN CORPUSCULAR HGB CONC 33.1 g/dL (33.0-36.5); MEAN CORPUSCULAR VOLUME 79.1 FL (78-98); MEAN PLATELET VOLUME 8.4 FL (7.4-10.4); MONOCYTES % (AUTO) 4.9 % (2-12); NEUTROPHILS # (AUTO) 17.2 X10'3 (1.8-7.7); NEUTROPHILS % (AUTO) 88.7 % (42-75); PLATELET COUNT 271 X10'3 (140-440); RED BLOOD COUNT 3.76 X10'6 (4.20-5.60); RED CELL DISTRIBUTION WIDTH 15.9 % (11.5-14.5); WHITE BLOOD COUNT 19.4 X10'3 (4.5-11.0)
[2024-11-25 06:44] LABS: ALANINE AMINOTRANSFERASE 41 U/L (12-78); ALBUMIN 2.2 G/DL (3.4-5.0); ALBUMIN/GLOBULIN RATIO 0.6 (1.1-1.5); ALKALINE PHOSPHATASE 47 IU/L (46-116); ANION GAP 2 (8-16); ASPARTATE AMINO TRANSFERASE 29 U/L (10-37); BILIRUBIN,TOTAL 0.4 MG/DL (0.1-1.0); BLOOD UREA NITROGEN 12 MG/DL (7-18); BUN/CREATININE RATIO 31.6 (10.0-20.0); CHLORIDE 103 MMOL/L (99-107); CREATININE 0.38 MG/DL (0.40-0.90); GLUCOSE 117 MG/DL (70-104); MAGNESIUM 1.9 MG/DL (1.5-2.4); POTASSIUM 3.9 MMOL/L (3.5-5.1); SODIUM 137 MMOL/L (135-145); TOTAL CARBON DIOXIDE 31.9 MMOL/L (24-32); TOTAL PROTEIN 5.6 G/DL (6.4-8.2); eCRCL 98 ML/MIN; eGFR > 90 ML/MIN
[2024-11-25] MEDS: methylPREDNISolone sod succ/PF 40mg inj. IV SCH (08:07)
[2024-11-25] MEDS ORDERED: sodium phosphate inj. 15 MMOL in dextrose 5%-water 250 ML IV PRN (10:55)
[2024-11-25] MEDS ORDERED: sodium phosphate inj. 30 MMOL in dextrose 5%-water 250 ML IV PRN (10:55)
[2024-11-25] MEDS: diatrozoate meglu/diatrozoate sod (37% iodine) 120ML oral solution PO ONE (11:26)
[2024-11-25] MEDS: diatr meglu/diatrizoate 30ml oral sol.-(3 dose) bottle PO ONE (11:27)
[2024-11-25] MEDS ORDERED: iohexol 300mg/ml 100ml inj. ONE (15:47)
[2024-11-25] MEDS: ondansetron/PF 4mg/2ml inj IV PRN (20:08)
[2024-11-25] MEDS: Neutra Phos packet PO PRN (21:15)
[2024-11-26] VITALS (12 sets, daily range): BP systolic 85–113; BP diastolic 46–71; PULSE 70–98; RESP 16–20; TEMP 96.7–99.8; O2SAT 85–98
[2024-11-26 05:55] LABS: BASOPHILS # (AUTO) 0.1 X10'3 (0-0.2); BASOPHILS % (AUTO) 0.3 % (0-1); EOSINOPHILS # (AUTO) 0.2 X10'3 (0-0.9); EOSINOPHILS % (AUTO) 1.4 % (0-6); HEMATOCRIT 26.5 % (35.0-45.0); HEMOGLOBIN 8.7 g/dl (12.0-16.0); LYMPHOCYTES # (AUTO) 0.9 X10'3 (1.1-4.8); LYMPHOCYTES % (AUTO) 5.9 % (21-51); MEAN CORPUSCULAR HEMOGLOBIN 26.2 PG (27.0-31.0); MEAN CORPUSCULAR HGB CONC 32.8 g/dL (33.0-36.5); MEAN CORPUSCULAR VOLUME 79.9 FL (78-98); MEAN PLATELET VOLUME 8.5 FL (7.4-10.4); MONOCYTES # (AUTO) 0.8 X10'3 (0-0.9); NEUTROPHILS # (AUTO) 13.7 X10'3 (1.8-7.7); NEUTROPHILS % (AUTO) 87.4 % (42-75); PLATELET COUNT 237 X10'3 (140-440); RED BLOOD COUNT 3.32 X10'6 (4.20-5.60); RED CELL DISTRIBUTION WIDTH 15.8 % (11.5-14.5); WHITE BLOOD COUNT 15.7 X10'3 (4.5-11.0)
[2024-11-26 06:19] LABS: ALANINE AMINOTRANSFERASE 32 U/L (12-78); ALBUMIN/GLOBULIN RATIO 0.7 (1.1-1.5); ALKALINE PHOSPHATASE 44 IU/L (46-116); ANION GAP 2 (8-16); ASPARTATE AMINO TRANSFERASE 21 U/L (10-37); BILIRUBIN,TOTAL 0.3 MG/DL (0.1-1.0); BLOOD UREA NITROGEN 15 MG/DL (7-18); BUN/CREATININE RATIO 44.1 (10.0-20.0); CALCIUM 7.7 MG/DL (8.5-10.1); CHLORIDE 100 MMOL/L (99-107); CREATININE 0.34 MG/DL (0.40-0.90); GLUCOSE 134 MG/DL (70-104); MAGNESIUM 1.7 MG/DL (1.5-2.4); PHOSPHORUS 3.4 MG/DL (2.3-4.5); POTASSIUM 3.9 MMOL/L (3.5-5.1); SODIUM 135 MMOL/L (135-145); TOTAL CARBON DIOXIDE 32.8 MMOL/L (24-32); TOTAL PROTEIN 4.9 G/DL (6.4-8.2); eCRCL 109 ML/MIN; eGFR > 90 ML/MIN
[2024-11-26] MEDS: magnesium hydroxide 30ml (MOM) UD suspension PO ONE (12:44)
[2024-11-27] VITALS (9 sets, daily range): BP systolic 98–117; BP diastolic 54–72; PULSE 72–90; RESP 14–20; TEMP 97.9–99.5; O2SAT 95–100
[2024-11-27 05:43] LABS: BASOPHILS % (AUTO) 0.1 % (0-1); EOSINOPHILS # (AUTO) 0.1 X10'3 (0-0.9); EOSINOPHILS % (AUTO) 0.8 % (0-6); HEMATOCRIT 25.4 % (35.0-45.0); HEMOGLOBIN 8.2 g/dl (12.0-16.0); LYMPHOCYTES # (AUTO) 0.8 X10'3 (1.1-4.8); LYMPHOCYTES % (AUTO) 4.2 % (21-51); MEAN CORPUSCULAR HEMOGLOBIN 25.9 PG (27.0-31.0); MEAN CORPUSCULAR HGB CONC 32.4 g/dL (33.0-36.5); MEAN CORPUSCULAR VOLUME 80.1 FL (78-98); MEAN PLATELET VOLUME 8.4 FL (7.4-10.4); MONOCYTES # (AUTO) 0.9 X10'3 (0-0.9); MONOCYTES % (AUTO) 5.2 % (2-12); NEUTROPHILS # (AUTO) 16.3 X10'3 (1.8-7.7); NEUTROPHILS % (AUTO) 89.7 % (42-75); PLATELET COUNT 270 X10'3 (140-440); RED BLOOD COUNT 3.17 X10'6 (4.20-5.60); RED CELL DISTRIBUTION WIDTH 15.7 % (11.5-14.5); WHITE BLOOD COUNT 18.2 X10'3 (4.5-11.0)
[2024-11-27 05:59] LABS: ALANINE AMINOTRANSFERASE 32 U/L (12-78); ALBUMIN/GLOBULIN RATIO 0.6 (1.1-1.5); ALKALINE PHOSPHATASE 51 IU/L (46-116); ANION GAP 3 (8-16); ASPARTATE AMINO TRANSFERASE 21 U/L (10-37); BILIRUBIN,TOTAL 0.3 MG/DL (0.1-1.0); BLOOD UREA NITROGEN 14 MG/DL (7-18); BUN/CREATININE RATIO 32.6 (10.0-20.0); CALCIUM 7.4 MG/DL (8.5-10.1); CHLORIDE 100 MMOL/L (99-107); CREATININE 0.43 MG/DL (0.40-0.90); GLUCOSE 136 MG/DL (70-104); MAGNESIUM 2.9 MG/DL (1.5-2.4); PHOSPHORUS 3.4 MG/DL (2.3-4.5); POTASSIUM 4.1 MMOL/L (3.5-5.1); PREALBUMIN 13.5 MG/DL (19-36); SODIUM 136 MMOL/L (135-145); TOTAL CARBON DIOXIDE 33.4 MMOL/L (24-32); TOTAL PROTEIN 5.1 G/DL (6.4-8.2); TRIGLYCERIDES 308 MG/DL (20-135); eCRCL 91 ML/MIN; eGFR > 90 ML/MIN
[2024-11-27] MEDS: nystatin 500,000 unit/5ML UD oral suspension PO SCH (14:22)
[2024-11-27] MEDS ORDERED: nystatin 500,000 unit/5ML UD oral suspension PO SCH (21:00)
[2024-11-27] MEDS: clotrimazole 1% vaginal cream 45gm VG SCH (21:30)
[2024-11-28] VITALS (8 sets, daily range): BP systolic 99–101; BP diastolic 59–64; PULSE 72–91; RESP 12–18; TEMP 97.7–99.5; O2SAT 94–99
[2024-11-28 06:19] LABS: BASOPHILS % (AUTO) 0.1 % (0-1); EOSINOPHILS # (AUTO) 0.2 X10'3 (0-0.9); EOSINOPHILS % (AUTO) 1.2 % (0-6); HEMOGLOBIN 8.5 g/dl (12.0-16.0); LYMPHOCYTES # (AUTO) 0.8 X10'3 (1.1-4.8); LYMPHOCYTES % (AUTO) 4.6 % (21-51); MEAN CORPUSCULAR HGB CONC 32.7 g/dL (33.0-36.5); MEAN CORPUSCULAR VOLUME 79.6 FL (78-98); MEAN PLATELET VOLUME 8.3 FL (7.4-10.4); MONOCYTES # (AUTO) 1.4 X10'3 (0-0.9); MONOCYTES % (AUTO) 7.9 % (2-12); NEUTROPHILS % (AUTO) 86.2 % (42-75); PLATELET COUNT 374 X10'3 (140-440); RED BLOOD COUNT 3.27 X10'6 (4.20-5.60); RED CELL DISTRIBUTION WIDTH 15.8 % (11.5-14.5); WHITE BLOOD COUNT 17.3 X10'3 (4.5-11.0)
[2024-11-28 06:29] LABS: ALANINE AMINOTRANSFERASE 34 U/L (12-78); ALBUMIN/GLOBULIN RATIO 0.6 (1.1-1.5); ALKALINE PHOSPHATASE 61 IU/L (46-116); ANION GAP 5 (8-16); ASPARTATE AMINO TRANSFERASE 28 U/L (10-37); BILIRUBIN,TOTAL 0.4 MG/DL (0.1-1.0); BLOOD UREA NITROGEN 13 MG/DL (7-18); BUN/CREATININE RATIO 27.1 (10.0-20.0); CALCIUM 7.7 MG/DL (8.5-10.1); CHLORIDE 100 MMOL/L (99-107); CREATININE 0.48 MG/DL (0.40-0.90); GLUCOSE 120 MG/DL (70-104); MAGNESIUM 1.7 MG/DL (1.5-2.4); PHOSPHORUS 3.7 MG/DL (2.3-4.5); POTASSIUM 4.2 MMOL/L (3.5-5.1); SODIUM 136 MMOL/L (135-145); TOTAL CARBON DIOXIDE 31.4 MMOL/L (24-32); TOTAL PROTEIN 5.3 G/DL (6.4-8.2); eCRCL 81 ML/MIN; eGFR > 90 ML/MIN
[2024-11-28] MEDS ORDERED: LORazepam 0.5 MG tablet PO PRN (19:50)
[2024-11-29] VITALS (7 sets, daily range): BP systolic 86–102; BP diastolic 52–58; PULSE 88–92; RESP 16–20; TEMP 98.1–99; O2SAT 95–96
[2024-11-29 03:47] LABS: BASOPHILS # (AUTO) 0.1 X10'3 (0-0.2); BASOPHILS % (AUTO) 0.7 % (0-1); EOSINOPHILS # (AUTO) 0.1 X10'3 (0-0.9); EOSINOPHILS % (AUTO) 0.8 % (0-6); HEMOGLOBIN 7.9 g/dl (12.0-16.0); LYMPHOCYTES # (AUTO) 1.1 X10'3 (1.1-4.8); LYMPHOCYTES % (AUTO) 7.2 % (21-51); MEAN CORPUSCULAR HEMOGLOBIN 27.4 PG (27.0-31.0); MEAN CORPUSCULAR HGB CONC 34.3 g/dL (33.0-36.5); MEAN CORPUSCULAR VOLUME 79.8 FL (78-98); MEAN PLATELET VOLUME 8.3 FL (7.4-10.4); MONOCYTES # (AUTO) 1.1 X10'3 (0-0.9); MONOCYTES % (AUTO) 7.6 % (2-12); NEUTROPHILS # (AUTO) 12.4 X10'3 (1.8-7.7); NEUTROPHILS % (AUTO) 83.7 % (42-75); PLATELET COUNT 345 X10'3 (140-440); RED BLOOD COUNT 2.89 X10'6 (4.20-5.60); RED CELL DISTRIBUTION WIDTH 16.1 % (11.5-14.5); WHITE BLOOD COUNT 14.8 X10'3 (4.5-11.0)
[2024-11-29 04:38] LABS: ALANINE AMINOTRANSFERASE 44 U/L (12-78); ALBUMIN 1.8 G/DL (3.4-5.0); ALBUMIN/GLOBULIN RATIO 0.6 (1.1-1.5); ALKALINE PHOSPHATASE 54 IU/L (46-116); ANION GAP 2 (8-16); BILIRUBIN,TOTAL 0.4 MG/DL (0.1-1.0); BLOOD UREA NITROGEN 11 MG/DL (7-18); BUN/CREATININE RATIO 33.3 (10.0-20.0); CALCIUM 7.2 MG/DL (8.5-10.1); CHLORIDE 101 MMOL/L (99-107); CREATININE 0.33 MG/DL (0.40-0.90); MAGNESIUM 1.7 MG/DL (1.5-2.4); PHOSPHORUS 3.5 MG/DL (2.3-4.5); POTASSIUM 3.7 MMOL/L (3.5-5.1); SODIUM 134 MMOL/L (135-145); TOTAL CARBON DIOXIDE 31.2 MMOL/L (24-32); TOTAL PROTEIN 4.7 G/DL (6.4-8.2); eCRCL 118 ML/MIN; eGFR > 90 ML/MIN
[2024-11-29 04:44] LABS: ASPARTATE AMINO TRANSFERASE 32 U/L (10-37); GLUCOSE 95 MG/DL (70-104)
[2024-11-29] MEDS: normal saline 500ml IV soln 500 ML IV SCH (05:35)
[2024-11-29] MEDS ORDERED: ACET-1008 PO (10:16)
[2024-11-29] MEDS ORDERED: HYDR-3965 PO (10:18)
[2024-11-29] MEDS ORDERED: IBUP-1985 PO (10:23)
[2024-11-29] MEDS ORDERED: PANT40TA54 PO (10:23)
[2024-11-29] MEDS ORDERED: ONDA-243 PO (10:23)
[2024-11-29] MEDS ORDERED: CIPR-259 PO (10:26)
[2024-11-29] MEDS ORDERED: METR-159 PO (10:26)
== END 2024-11-29 14:50 | disposition home health service (06) | DRG 853 ==
LOC: ER 14:24 → ED HOLD 23:36 → ORTHO 4S 11-16 03:15 → SUR 3N 11-17 23:32 → ORTHO 4S 11-20 21:35 → SUR 3N 11-25 03:55
PROVIDERS: ADMIT Internal Medicine; ATTEND Internal Medicine
PROC: BW211ZZ Computerized Tomography (CT Scan) of Abdomen and Pelvis using Low Osmolar Contrast (ICD-10-PCS; 2024-11-15)
PROC: BW211ZZ Computerized Tomography (CT Scan) of Abdomen and Pelvis using Low Osmolar Contrast (ICD-10-PCS; 2024-11-19)
PROC: 0DB80ZZ Excision of Small Intestine, Open Approach (ICD-10-PCS; 2024-11-20)
PROC: 0DNN0ZZ Release Sigmoid Colon, Open Approach (ICD-10-PCS; 2024-11-20)
PROC: 0DTJ0ZZ Resection of Appendix, Open Approach (ICD-10-PCS; 2024-11-20)
PROC: 0D1N0Z4 Bypass Sigmoid Colon to Cutaneous, Open Approach (ICD-10-PCS; principal; 2024-11-20 15:21)
PROC: 02HV33Z Insertion of Infusion Device into Superior Vena Cava, Percutaneous Approach (ICD-10-PCS; 2024-11-22)
PROC: 4A02X4A Measurement of Cardiac Electrical Activity, Guidance, External Approach (ICD-10-PCS; 2024-11-22)
PROC: BW211ZZ Computerized Tomography (CT Scan) of Abdomen and Pelvis using Low Osmolar Contrast (ICD-10-PCS; 2024-11-25)
DX: A41.9 Sepsis, unspecified organism (principal); E43 Unspecified severe protein-calorie malnutrition; J44.1 Chronic obstructive pulmonary disease with (acute) exacerbation; K56.609 Unspecified intestinal obstruction, unspecified as to partial versus complete obstruction; N82.3 Fistula of vagina to large intestine; N39.0 Urinary tract infection, site not specified; N82.8 Other female genital tract fistulae; Z68.1 Body mass index [BMI] 19.9 or less, adult; G47.00 Insomnia, unspecified; M79.7 Fibromyalgia; I10 Essential (primary) hypertension; J43.9 Emphysema, unspecified; F41.9 Anxiety disorder, unspecified; B96.20 Unspecified Escherichia coli [E. coli] as the cause of diseases classified elsewhere; Z88.5 Allergy status to narcotic agent; Z88.2 Allergy status to sulfonamides; Z79.899 Other long term (current) drug therapy; Z90.710 Acquired absence of both cervix and uterus; Z87.891 Personal history of nicotine dependence; Z85.118 Personal history of other malignant neoplasm of bronchus and lung
CPT/HCPCS: 36415; 36569; 36600; 71045; 74176; 74177; 76942; 80048; 80053; 81001; 82803; 82948; 83036; 83605; 83690; 83735; 84100; 84134; 84145; 84478; 85007; 85018; 85025; 86885; 86900; 86901; 87077; 87081; 87088; 87186; 88304; 88307; 93005; 93306; 94640; 94760; 97116; 97161; 97164; 97530; 99285; A4421; A4615; A4618; A6213; A6253; A6258; A6402; A6407; A6449; A7000; C1758; G0378; J0131; J0360; J0666; J0694; J0696; J1100; J1171; J1650; J1815; J2003; J2250; J2405; J2470; J2704; J2919; J3010; J3480; J3490; J7030; J7040; J7060; J7120; P9045; Q9963; Q9967

== ENCOUNTER 2025-04-10 10:29 | Outpatient (CLI) | payer MEDICARE, MEDICAID ==
[~2025-04-10 10:29] MED LIST changes: +ACET-1008 PO; -BUPR-561 PO; +BUPR-726 PO; +FLUT1BLS7 INH; +IBUP-1985 PO; -IBUP-2697 PO; +LACT1CAP65 PO; +LOSA25TA41 PO; -LOSA50TA64 PO; +ONDA-243 PO; +PANT40TA54 PO; -TIOT18CA3 INH; +TIOT4MIS2 INH; +VIT1CAPS4 PO
--- NOTE | 2025-04-10 12:36 | RADIOLOGY REPORT ---
Indication: COLOSTOMY STATUS,LOWER ABDOMINAL PAIN, UNSPECIFIED Technique: CT axial images of the abdomen and pelvis are obtained without contrast. Coronal and sagit garland reformats were obtained. Radiation Dose Information: CTDI volume is mGy. Dose-length product is mGy*cm Comparison: CT CT ABDOMEN PELVIS W/ IV CONTRAST on DOS: 11/25/24, 11/19/2024 FINDINGS: There is limited interpretation of the abdomen and pelvis without administration of intravenous contr ast. Pulmonary emphysematous changes. Bibasilarconsolidation/atelectasis most pronounced in the left lower lobe where there is a region of airspace disease measuring 6 cm. Small pericardial effusion. Adrenal glands, spleen unremarkable in shape. Cholelithiasis. Liver unremarkable in shape. Pancreati c hypodense/ cystic lesion measuring 1.5 cm. Kidneys demonstrate no hydronephrosis, nephrolithiasis. Stomach is partially distended. Small bowel loops relatively nondilated. Left abdominal colostomy. Narrowing at the colostomy exits through the abdominal wall measuring appro ximately 12 mm. Presacral complex appearing collection measuring 5.3 x 5.3 cm, previously 8.2 x 6.0 cm. There is a likely enterocutaneous fistula at the level of the umbilicus, image 55. [id number] sacroiliac degenerative disease old right rib fractures. Moderate thoracolumbar dege nerative disc disease. IMPRESSION: 1. Left colostomy. Narrowing of the colostomy exit from the abdominal wall measuring 1.2 cm in the a xial plane. Evaluate clinically. 2. 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 3. Bibasilar pulmonary airspace opacities/consolidation measuring up to 6 cm. Recommend short-term f ollow-up chest CT in 3 months to ensure resolution. 4. Cholelithiasis. 5. Presacral complex appearing collection measuring 5.3 x 5.3 cm previously 8.2 x 6.0 cm with differe ntial considerations including abscess, hematoma / seroma, postoperative collections, other infectiou s / inflammatory / neoplastic processes. 6. Other findings as described.
== END 2025-04-10 23:59 | disposition home or self-care (01) ==
LOC: RAD 10:29
PROVIDERS: ATTEND Surgery
DX: K80.20 Calculus of gallbladder without cholecystitis without obstruction (principal); R10.30 Lower abdominal pain, unspecified; Z93.3 Colostomy status; M51.34 Other intervertebral disc degeneration, thoracic region; Z98.890 Other specified postprocedural states; M46.1 Sacroiliitis, not elsewhere classified; J43.9 Emphysema, unspecified; J98.11 Atelectasis
CPT/HCPCS: 74176